=== PATIENT | female | born 1975 | race Caucasian/White ===

== ENCOUNTER 2022-06-27 13:47 | Emergency (ER) | payer OTHER ==
[~2022-06-27] VITALS: Ht 162.6 cm; Wt 103.2 kg
[2022-06-27] MEDS ORDERED: NOVOLOG FLEX100 U/ML SQ (14:01)
[2022-06-27] MEDS ORDERED: AMBIEN10 MG PO (14:01)
[2022-06-27] MEDS ORDERED: SERTRALINE HCL150 MG PO (14:01)
[2022-06-27 14:19] LABS: EOS # 0.18 K/mm3 (0.04-0.40); HEMATOCRIT 45.3 % (37.0-47.0); HEMOGLOBIN 15.1 g/dL (12.5-16.0); LYMPH# 1.53 K/mm3 (1.50-4.00); MEAN CELL VOLUME 89 fl (78-100); MEAN CORPUSCULAR HEMOGLOBIN 30 pg (27-31); MEAN CORPUSCULAR HGB CONC 33 g/dL (33-37); MEAN PLATELET VOLUME 9.2 fl (7.4-10.4); MONO # 1.01 K/mm3 (0.20-0.80); NEU # 6.17 K/mm3 (1.40-6.50); PLATELET COUNT 289 K/mm3 (130-400); RED BLOOD COUNT 5.08 M/mm3 (4.10-5.30); RED CELL DISTRIBUTION WIDTH 13.3 % (11.5-14.5); WHITE BLOOD COUNT 8.9 K/mm3 (4.8-10.8)
[2022-06-27 14:23] LABS: ALBUMIN 4.1 g/dL (3.5-5.0)
[2022-06-27 14:24] LABS: CALCIUM 9.3 mg/dL (8.3-10.5)
[2022-06-27 14:25] LABS: TOTAL PROTEIN 7.4 g/dL (6.4-8.3)
[2022-06-27 14:27] LABS: TOTAL BILIRUBIN 0.5 mg/dL (0.2-1.2)
[2022-06-27] MEDS ORDERED: ZOFRAN ODT4 MG PO (17:12)
[2022-06-27 17:34] VITALS: BP 131/93
== END 2022-06-27 17:35 | disposition home or self-care (01) ==
LOC: ED 13:47
PROVIDERS: Family Medicine
DX: U07.1 COVID-19 (principal); R11.2 Nausea with vomiting, unspecified; Z28.310 Unvaccinated for COVID-19
CPT/HCPCS: J7030

== ENCOUNTER → 2024-02-09 | Outpatient (CLI) | payer OTHER ==
[~2024-02-09] MED LIST: AMBIEN10 MG PO; NOVOLOG FLEX100 U/ML SQ; SERTRALINE HCL150 MG PO; ZOFRAN ODT4 MG PO
== END ==
LOC: LAB 16:08
DX: Z20.818 Contact with and (suspected) exposure to other bacterial communicable diseases (principal)

== ENCOUNTER → 2024-08-13 | Outpatient (CLI) | payer OTHER | LOC: LAB 09:38 | DX: J06.9 Acute upper respiratory infection, unspecified (principal) ==